=== PATIENT | female | born 2000 | race Caucasian/White ===

== ENCOUNTER 2023-10-25 21:21 | Emergency (ER) | payer BC, SELFPAY ==
[2023-10-25 21:45] VITALS: BP 124/73
--- NOTE | 2023-10-25 23:22 | ED.GENMED ---
History of Present Illness
General
Chief Complaint: Fall
Source: patient and significant other
Exam Limitations: none
Time Seen by Provider: 10/25/23 22:37
History of Present Illness
History of Present Illness:
This is a 23-year-old female who presents for evaluation after a fall. The patient states that she was walking down steps and slid down on her buttocks. The patient offers no complaints. 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 She denies
abdominal pain. She denies vaginal discharge or bleeding. She reports normal movement.
Past History
Past History
ED Past Medical History: None
Phy Exam
Physical Exam
Physical Exam:
CONSTITUTIONAL Patient alert and oriented to person, place and time. Well-appearing. Vital signs reviewed.
HEAD atraumatic, normocephalic.
EYES eyelids normal to inspection, Pupils equally round and reactive to light, Extraocular muscles intact, Conjunctiva normal, Sclera normal.
NECK normal range of motion, Trachea midline, no jugular venous distention.
RESPIRATORY CHEST No respiratory distress noted, Chest expansion equal, Bilateral breath sounds clear.
CARDIOVASCULAR regular rate and rhythm, Heart sounds normal.
ABDOMEN abdomen nontender, Bowel sounds normal. Gravid uterus, nontender, no ecchymosis or swelling. heart rate normal your Doppler testing 144-154
BACK normal inspection, no obvious deformities, no midline tenderness to
UPPER EXTREMITY range of motion normal, Motor strength normal, no cyanosis, no edema.
LOWER EXTREMITY range of motion normal, Motor strength normal, no cyanosis, no edema.
NEURO Speech normal, No focal motor deficits, Winston coma scale 15, Memory normal, Cranial Nerves intact to screening exam.
SKIN skin warm, dry, and normal in color.
PSYCHIATRIC patient oriented to person place and time, Normal affect.
Course
Vital Signs
Initial and Last Documented VS:
Initial Vital Signs
Temp Pulse Resp BP Pulse Ox
98.5 F 73 20 124/73 99
10/25/23 21:45 10/25/23 21:45 10/25/23 21:45 10/25/23 21:45 10/25/23 21:45
Last Documented Vital Signs
Temp Pulse Resp BP Pulse Ox
98.5 F 73 20 124/73 99
10/25/23 21:45 10/25/23 21:45 10/25/23 21:45 10/25/23 21:45 10/25/23 21:45
MDM/Problems Addressed
MDM/Problems Addressed:
Minor fall
*Pulse Oximetry
Patient hypoxic: no
*Critical Care Note
Total Time (30-74mins, 75-104mins- exclusive of procedures): Not Applicable
Data Reviewed
Source: patient and significant other
Further Testing Considered But Not Given:
Considered ultrasound but normal movement and, low risk injury
Patient Management
Escalation/DeEscalation of care consider admission/obs:
Patient appears well. Fall to buttocks. Okay for discharge. heart rate normal. Exam normal
ED Attending Note
-
Portions of this chart may have been created with voice recognition software.� Occasional wrong word or��sound alike� substitutions may have occurred due to the inherent limitations of voice recognition software.
Discharge Plan
Departure
Patient Disposition: Home (Routine Discharge)
Date of Disposition: 10/25/23
Time of Disposition: 23:24
Patient with high blood pressure during this ER visit?: No
Discharge Problem:
Fall
Activity Restrictions/Additional Instructions:
Return immediately for abdominal pain, vaginal bleeding, vomiting, weakness of any kind or any other concerns. 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
Interventions
Interventions:
*Risk Screen - Suicide Last Done: 10/25/23 21:45
*General Assessment Last Done: 10/25/23 21:45
*Neglect/Abuse Screening Last Done: 10/25/23 21:45
ED- Fall Risk Assessment Last Done: 10/25/23 21:45
*ED COVID-19 Vaccine History Last Done: 10/25/23 21:45
Discharge Date and Time
Print Language: CITIZ[place]
[2023-10-25 23:24] VITALS: BMI 22.1
[2023-10-26 00:27] VITALS: BP 105/67
== END 2023-10-25 23:45 | disposition home or self-care (01) ==
LOC: EMR 21:21
PROVIDERS: EMERGENCY PHYSICIAN Emergency Medicine
DX: Z04.3 Encounter for examination and observation following other accident (principal); O26.892 Other specified pregnancy related conditions, second trimester; W10.9XXA Fall (on) (from) unspecified stairs and steps, initial encounter; Z3A.21 21 weeks gestation of pregnancy
CPT/HCPCS: 99281